=== PATIENT | female | born 1945 | race Two or more races ===

== ENCOUNTER → 2017-12-19 10:16 | Outpatient (CLI) | payer MEDICARE ==
[2017-12-19 11:00] LABS: BASOPHILS 0.4 % (0-2); EOSINOPHILS 2.2 % (0-7); HEMATOCRIT 40.9 % (36.0-48.0); HEMOGLOBIN 13.2 g/dL (12-16); IMMATURE GRANULOCYTES 0.2 % (0-5); LYMPHOCYTES 34.1 % (15-50); MCH 30.5 pg (26.0-34.0); MCHC 32.3 g/dL (31.0-37.0); MCV 94.5 fL (80.0-100.0); MEAN PLATELET VOLUME 10.9 fL (7.4-10.4); MONOCYTES 7.2 % (2-11); NEUTROPHILS 55.9 % (40-80); PLATELET COUNT 172 10x3/uL (130-400); RBC 4.33 10x6/uL (4.00-5.40); RDW 13.2 % (11.5-14.5); WBC 4.6 10x3/uL (4.8-10.8)
[2017-12-19 11:39] LABS: ALBUMIN 3.8 g/dL (3.4-5.0); ALKALINE PHOSPHATASE 79 U/L (46-116); ALT (SGPT) 37 U/L (10-68); CALC OSMOLALITY 281 mosm/kg (275-300); CALCIUM 9.6 mg/dL (8.5-10.1); CARBON DIOXIDE 26.6 mmol/L (21.0-32.0); CHLORIDE - SERUM 105 mmol/L (98-107); CHOL - HDL RATIO 3.8 ratio (2.3-4.1); CHOLESTEROL, TOTAL 208 mg/dL (0-200); CREATININE - SERUM 0.7 mg/dL (0.6-1.3); GLUCOSE 93 mg/dL (74-106); HDL CHOLESTEROL 55 mg/dL (32-96); LDL CHOLESTEROL 116 mg/dL (0-100); LDL-HDL RATIO 2.1 ratio (1.5-3.5); POTASSIUM - SERUM 4.5 mmol/L (3.5-5.1); PROTEIN - SERUM 8.2 g/dL (6.4-8.2); SODIUM 142 mmol/L (136-145); TRIGLYCERIDE 189 mg/dL (30-200); UREA NITROGEN 10 mg/dL (7-18); eGFR NON AFRICAN AMERICAN 87 mL/min (90-120)
== END | disposition home or self-care (01) ==
LOC: D.LAB 10:16
PROVIDERS: Family Medicine
DX: I10 Essential (primary) hypertension (principal); Z00.00 Encounter for general adult medical examination without abnormal findings; E78.5 Hyperlipidemia, unspecified; Z85.038 Personal history of other malignant neoplasm of large intestine; E55.9 Vitamin D deficiency, unspecified

== ENCOUNTER → 2017-12-27 09:28 | Outpatient (CLI) | payer MEDICARE ==
[2017-12-27 10:29] LABS: T4 THYROXIN - FREE 0.98 ng/dL (0.76-1.46); THYROID STIMULATING HORMONE 4.58 uIU/mL (0.36-3.74)
== END | disposition home or self-care (01) ==
LOC: D.LAB 12-23 08:15
PROVIDERS: Family Medicine
DX: E03.9 Hypothyroidism, unspecified (principal)

== ENCOUNTER → 2018-04-21 10:58 | Outpatient (CLI) | payer MEDICARE ==
[2018-04-21 11:37] LABS: APPEARANCE CLEAR (CLEAR); BILIRUBIN NEGATIVE (NEGATIVE); COLOR MINT GREEN (YELLOW); GLUCOSE NEGATIVE (NEGATIVE); KETONE NEGATIVE (NEGATIVE); NITRITE NEGATIVE (NEGATIVE); PROTEIN NEGATIVE (NEGATIVE); UROBILINOGEN NORMAL (NORMAL)
[2018-04-21 11:47] LABS: T4 THYROXIN - FREE 0.83 ng/dL (0.76-1.46); THYROID STIMULATING HORMONE 4.58 uIU/mL (0.36-3.74)
== END | disposition home or self-care (01) ==
LOC: D.LAB 10:58
PROVIDERS: Family Medicine
DX: R30.0 Dysuria (principal); E03.9 Hypothyroidism, unspecified; R10.9 Unspecified abdominal pain

== ENCOUNTER → 2018-06-28 08:45 | Outpatient (CLI) | payer MEDICARE ==
--- NOTE | ~2018-06-28 | ST ---
PATIENT:DENZEL AZAR MEDICAL RECORD: [id number] SEX: F LOCATION:[facility] ORDER #: ADMISSION DATE: 06/28/18 AGE OF PATIENT: 73 REFERRING PHYSICIAN: INTERPRETING PHYSICIAN: JAE DORAN MD DATE OF SERVICE: 06/28/2018 PROCEDURE: Nuclear Stress Test INDICATION: Chest pain of unknown etiology, hypertension, hyperlipidemia. She was exercised on standard Carlos protocol terminated at 5 minutes due to achievement of maximum target heart rate response with 33.0 mCi of sestamibi injected at peak stress, 11 mCi were used previously for rest images. FINDINGS: Gated SPECT reveals preserved ejection fraction at 75% with good wall motioning and thickening and brightening throughout all segments. SPECT imaging Cardiolite was used as myocardial fusion agent. There is reversibility inferiorly and apically. This includes the basal, mid apical inferior segments as well as the apex itself. The degree of reversibility is moderate. The amount of myocardium involved is moderate. OVERALL IMPRESSION: 1. This is a normal nuclear stress test, reversibility inferiorly and apically. 2. Gated SPECT reveals preserved ejection fraction greater than 70% in this patient with ongoing symptomatology, the current scan does suggest the presence of hemodynamically significant coronary artery disease. We would proceed with coronary angiography as followup study. TRANSINT:[id number] Voice Confirmation ID: [id number] DOCUMENT ID: [id number] JAE DORAN MD at 1856 CC: [id number] DICTATION DATE: 06/29/18 1300 ADVERTISING SPECIALIST: 06/29/18 2348 DEP CLI 06/28/18 [place] [address]
[~2018-06-28 08:45] MED LIST: LOPRESSOR25 MG PO; PRINZIDE 20/12.1 TA1 PO; ZOCOR20 MG PO
[2018-07-12 09:29] VITALS: BMI 26.5
== END | disposition home or self-care (01) ==
LOC: D.HCCARDIO 08:45
DX: I20.9 Angina pectoris, unspecified (principal)

== ENCOUNTER → 2018-07-12 08:59 | Outpatient (CLI) | payer MEDICARE ==
[~2018-07-12] VITALS: Ht 167.6 cm; Wt 74.5 kg
--- NOTE | ~2018-07-12 | OP ---
PATIENT NAME: DENZEL AZAR MEDICAL RECORD: [id number] :41 LOCATION:[facility] ADMISSION DATE: SURGEON: JAE DORAN MD DATE OF OPERATION: 07/12/2018 PROCEDURES: 1. Left heart catheterization. 2. Selective coronary angiography. 3. Left ventriculogram. INDICATION: Chest pain compatible with angina. PROCEDURE IN DETAIL: After informed consent was obtained and after a detailed explanation of risks, benefits as well as alternative therapies, the patient elected to proceed with angiogram and heart catheterization. The right radial area was prepped and draped in normal sterile fashion. Right radial artery was cannulated via modified Seldinger technique with placement of 6-Hebrew sheath. All catheters exchanged through this sheath. FINDINGS: Left ventriculogram was performed in standard 30-degree DE LOS SANTOS view, reveals good cardiac wall motion throughout all segments. Overall ejection fraction estimated 60%. SELECTIVE CORONARY ANGIOGRAPHY: Left main, left anterior descending, left circumflex, right coronary artery are all smooth-walled vessels with no angiographic evidence of coronary artery disease. OVERALL IMPRESSION: 1. No angiographic evidence of coronary artery disease. 2. Normal left heart pressures. 3. Normal left ventricular systolic function. Chest pain is noncardiac in etiology. No further cardiac workup needs to be ascertained. TRANSINT:[id number] Voice Confirmation ID: [id number] DOCUMENT ID: [id number] JAE DORAN MD at 1718 CC: [id number] DICTATION DATE: 07/12/18 1100 LEARNING ADMINISTRATOR: 07/12/18 1221 DEP CLI 07/12/18 [id number] [place] [address]
--- NOTE | ~2018-07-12 | HEMODYNAMI ---
PATIENT:DENZEL AZRA MEDICAL RECORD: [id number] : 41 LOCATION:[facility] ADMISSION DATE: 07/12/18 Generatedon:07/12/201810:59 Patient name: DENZEL AZAR Patient #: [id number] SSN: : Date of study: 07/12/2018 Page: Of Hemodynamic Procedure Report Patient Data Patient Demographics Procedure consent was obtained First Name: DENZEL Gender: Female Last Name: DOE : 1945 Patient #: [id number] Age: 73 year(s) Race: Other Additional ID: [id number] Contact details [address]: [address] [place] [address] [place] State: [place] City: [place] Zip code: [address] Past Medical History Allergies: No known allergies Admission Admission Data Admission Date: 07/12/2018 Admission Time: 8:59 Procedure Procedure Types Cath Procedure Diagnostic Procedure LHC LHC w/Coronaries Procedure Description Procedure Date Procedure Date: 07/12/2018 Procedure Start Time: 10:51 Procedure End Time: 10:58 Procedure Staff Name Function Leonidas Jefferson MD Performing Physician Manjula Rainey RT Monitor Lindsey Carr RN Nurse Andre Jones RT Scrub Jose Otero RN Building Certifier Procedure Data Cath Procedure Fluoroscopy Diagnostic fluoroscopy Total fluoroscopy Time: 1.2 time: 1.2 min min Diagnostic fluoroscopy Total fluoroscopy dose: 121 dose: 121 mGy mGy Contrast Material Contrast Material Type Amount (ml) Isovue 300 49 Entry Location Entry Primary Successful Side Size Upsize Upsize Entry Closure Saleh ccessful Closure Location (Fr) 1 (Fr) 2 (Fr) Remarks Device Remarks Radial Right 6 Fr Mechanical artery Short Compression Estimated blood loss: 5 ml Diagnostic catheters Device Type Used For End Catheter Placement DIAGNOSTIC [place] 110cm 5 LV Angiography Fr catheter ([id number]) DIAGNOSTIC [place] 110cm 5 Left Coronary Fr catheter ([id number]) Angiography DIAGNOSTIC [place] 110cm 5 Right Coronary Fr catheter (557672) Angiography Procedure Complications No complications Procedure Medications Medication Administration Route Dosage Oxygen etCO2 Nasal cannula 2 l/min Lidocaine 2% added to field 20 Heparin Flush Bag added to field 2 bags (1000units/500ml NS) 0.9% NaCl I.V. 100 ml/hr Radial Cocktail added to field 1 syringe (Verapomil 2mg/Nitro 400mcg/Heparin 1500units) Versed I.V. 2 mg Fentanyl I.V. 100 mcg Versed I.V. 1 mg Fentanyl I.V. 50 mcg Hemodynamics Rest Heart Rate: 93 (bpm) Snapshots Pre Cath Intra NCS Post Cath Vital Signs Time Heart Resp SPO2 etCO2 NIBP (mmHg) Rhythm Pain Sedation Rate (ipm) (%) (mmHg) Status Level (bpm) 10:14:42 73 16 98 0 141/82(120) NSR 0 (11) 10(A) , No pain 10:19:06 63 12 98 35.9 146/73(89) NSR 0 (11) 10(A) , No pain 10:23:24 61 17 96 36 128/70(97) NSR 0 (11) 10(A) , No pain 10:27:42 61 15 99 24 127/69(106) NSR 0 (11) 10(A) , No pain 10:31:59 59 15 100 26.9 128/68(93) NSR 0 (11) 10(A) , No pain 10:36:17 57 14 98 29.9 127/59(110) NSR 0 (11) 10(A) , No pain 10:40:33 66 16 95 30 118/68(100) NSR 0 (11) 10(A) , No pain 10:44:43 60 13 96 35.9 116/68(97) NSR 0 (11) 10(A) , No pain 10:49:03 65 14 94 14.9 173/69(89) NSR 0 (11) 9(A) , No pain 10:53:25 82 16 98 32.9 85/58(68) NSR 0 (11) 9(A) , No pain 10:58:22 70 14 97 28.4 115/62(95) NSR 0 (11) 10(A) , No pain Medications Time Medication Route Dose Verified Delivered Reason Notes Effectiveness by by 10:13:08 Oxygen etCO2 2 l/min Leonidas Portillo used for Nasal Tauth MD Carr coke wheeler cannula 10:13:15 Lidocaine 2% added 20ml Leonidas Lauren for local to vial Ronny Jefferson MD anesthetic field 10:13:22 Heparin Flush added 2 bags Leonidas Lauren used for Bag to Ronny Jefferson MD procedure (1000units/500ml field NS) 10:13:31 0.9% NaCl I.V. 100 Leonidas Portillo Per ml/hr Ronny Carr RN physician 10:40:33 Radial Cocktail added 1 Leonidas Lauren for (Verapomil to syringe Ronny Jefferson MD vasodilation 2mg/Nitro field 400mcg/Heparin 1500units) 10:46:24 Versed I.V. 2 mg Leonidas Portillo for sedation Ronny Carr RN 10:46:30 Fentanyl I.V. 100 mcg Leonidas Portillo for sedation Ronny Carr RN 10:54:17 Versed I.V. 1 mg Leonidas Portillo for sedation Ronny Carr RN 10:54:21 Fentanyl I.V. 50 mcg Leonidas Portillo for sedation Ronny Carr RN Procedure Log Time Note 9:50:46 Manjula Counts RT(R) sent for patient. Start room use. 9:55:27 Time tracking: Regular hours (M-F 7:00 - 5:00) 9:55:30 Plan of Care:Hemodynamics will remain stable., Cardiac rhythm will remain stable., Comfort level will be maintained., Respiratory function will remain adequate., Patient/ family verbilizes understanding of procedure., Procedure tolerated without complication., Recovers from procedure without complications.. 10:07:39 Patient received from Pre/Post Procedure Room to CCL 3 Alert and oriented. Tansferred to table in Supine position. 10:07:57 Warm blankets applied, and suzie hugger turned on for patient comfort. 10:08:07 Correct patient and procedure confirmed by team. 10:08:13 Signed procedure consent form obtained from patient. 10:08:17 ECG and BP/O2 sat monitors applied to patient. 10:13:08 Oxygen 2 l/min etCO2 Nasal cannula was administered by Lindsey Carr RN; used for procedure; 10:13:15 Lidocaine 2% 20ml vial added to field was administered by Leonidas Jefferson MD; for local anesthetic; 10:13:22 Heparin Flush Bag (1000units/500ml NS) 2 bags added to field was administered by Leonidas Jefferson MD; used for procedure; 10:13:31 0.9% NaCl 100 ml/hr I.V. was administered by Lindsey Carr RN; Per physician; 10:13:34 Vital chart was started 10:18:00 Baseline sample Acquired. 10:18:05 Rhythm: sinus rhythm 10:18:21 H&P Date Dictated: 06/12/2018 Within 30 days and on chart., H&P Addendum completed by physician on day of procedure. (MUST COMPLETE FOR ALL OUTPATIENTS). 10:18:22 Pre-procedure instructions explained to patient. 10:18:22 Pre-op teaching completed and patient verbalized understanding. 10:18:24 Family in patients room. 10:18:27 Patient NPO since Midnight. 10:18:32 Patient allergic to No known allergies 10:18:34 Is the patient allergic to Iodine/contrast media? No. 10:18:35 Is patient on blood thinner?No 10:18:37 Patient diabetic? No. 10:18:40 Previous problem with sedation/anesthesia? No ? 10:18:40 Snore? Yes 10:18:41 Sleep apnea? No 10:18:42 Deviated septum? No 10:18:43 Opens mouth fully? Yes 10:18:44 Sticks out tongue? Yes 10:18:46 Airway obstruction? No ? 10:18:47 Dentures? No ? 10:18:50 Pre procedure: right dorsailis pedis pulse 2+ Normal; easily identifiable; not easily obliterated 10:18:52 Modified Karsten's test Ulnar < 7 seconds 10:18:53 Patient pain scale 0/10 ?. 10:19:00 IV patent on arrival in left forearm with 0.9% NaCl at O. 10:19:02 Lab results completed and on chart. 10:19:06 Right Radial & Right Groin area was prepped with chlora-prep and draped in sterile fashion 10:19:07 Alarms reviewed by R. N. 10:19:07 Sharps counted by scrub and verified by R.N. 10:19:11 Use device set Radial Dx or PCI 10:19:12 ACIST Syringe (61115) opened to sterile field. 10:19:13 Medline Cath Pack ([id number]) opened to sterile field. 10:19:13 Bag Decanter (2001S) opened to sterile field. 10:19:14 DIAGNOSTIC WIRE .035 260cm J wire (766754) opened to sterile field. 10:19:14 ACIST Hand Control (60834) opened to sterile field. 10:19:15 ACIST Manifold (96045) opened to sterile field. 10:19:15 Tegaderm 4 x 4 (1626W) opened to sterile field. 10:19:19 SHEATH 6FR Slender (36-1060) opened to sterile field. 10:30:37 Zero performed for pressure channel P1 10:40:33 Radial Cocktail (Verapomil 2mg/Nitro 400mcg/Heparin 1500units) 1 syringe added to field was administered by Leonidas Jefferson MD; for vasodilation; 10:45:21 Final Timeout: patient, procedure, and site verified with staff and physician. All members of the team are in agreement. 10:45:24 Right Radial & Right Groin site verified by team. 10:45:27 Physical assessment completed. ASA score P 2 - A patient with mild systemic disease as per Leonidas Jefferson MD. 10:45:31 Sedation plan: IV Moderate Sedation Medication:Versed, Fentanyl 10:46:24 Versed 2 mg I.V. was administered by Lindsey Carr RN; for sedation; 10:46:30 Fentanyl 100 mcg I.V. was administered by Lindsey Carr RN; for sedation; 10:51:06 Procedure started. 10:51:06 Full Disclosure recording started 10:51:11 Local anesthetic to right radial artery with Lidocaine 2% by Leonidas Jefferson MD.INITIAL ACCESS ONLY 10:51:31 A 6 Fr Short sheath was inserted into the Right Radial artery 10:52:08 The patient's family notified of status per Jose Otero RN. 10:52:32 A DIAGNOSTIC [place] 110cm 5 Fr catheter (646645) was advanced over the wire and used for LV Angiography. 10:53:09 LV gram done using DE [place] SANTOS 10:53:16 Injector settings: Ml/sec: 5, Volume: 15, 10:53:22 EF : 60 % 10:53:47 A DIAGNOSTIC [place] 110cm 5 Fr catheter (582173) was advanced over the wire and used for Left Coronary Angiography. 10:54:17 Versed 1 mg I.V. was administered by Lindsey Carr RN; for sedation; 10:54:21 Fentanyl 50 mcg I.V. was administered by Lindsey Carr RN; for sedation; 10:54:53 A DIAGNOSTIC [place] 110cm 5 Fr catheter (108049) was advanced over the wire and used for Right Coronary Angiography. 10:54:56 Catheter removed. 10:55:00 TR BAND Standard (CHO51NLK) opened to sterile field. 10:55:16 Sheath removed intact; hemostasis achieved with Mechanical Compression to the Right Radial artery. 10:55:18 Procedure ended.(Physican Out) 10:55:38 Fluoroscopy time 01.20 minutes. 10:55:42 Fluoroscopy dose: 121 mGy 10:55:42 Flurop Dose total: 121 10:55:45 Contrast amount:Isovue 300 49ml. 10:55:46 Sharps counted by scrub and verified by R.N. 10:55:49 TR band inflated with 12cc of air. 10:55:50 Insertion/operative site no bleeding no hematoma. 10:55:54 Post right radial artery:stable, clean and dry 10:55:55 Post Procedure Pulses reassessed and unchanged 10:55:58 Post-procedure physical assessment completed. ASA score P 2 - A patient with mild systemic disease as per Leonidas Jefferson MD. 10:56:00 Post procedure rhythm: unchanged. 10:56:02 Estimated blood loss: 5 ml 10:56:04 Post procedure instruction explained to patient.Patient verbalizes understanding. 10:56:04 Patient needs reinforcement of post procedure teaching. 10:56:11 Procedure Complication : No complications 10:56:13 See physician's report for complete and final results. 10:56:24 Procedure and supply charges have been captured, reviewed, submitted and are correct. 10:58:26 Vital chart was stopped 10:58:28 Report given to Pre/Post Procedure Room. 10:58:31 Patient transfered to Pre/Post Procedure Room with Stretcher. 10:58:41 Procedure ended. 10:58:41 Full Disclosure recording stopped 10:58:44 End room use (Document Last) Device Usage Item Name Manufacture Quantity Catalog Hospital Part Current Minimal Lot# / Number Charge Number Stock Stock Serial# Code [place] [address] 68254 555099 [id number] 467183 20 Syringe Medical (17728) Systems Inc Medline Medline 1 [id number] 793269 36759 327872 5 Cath Pack ([id number]) Bag Microtek 1 2001S 974786 05406 848373 5 Decanter Medical Inc. () DIAGNOSTIC St [place]avo 1 041689 622368 640461 400469 30 WIRE .035 260cm J wire (136333) ACIST Hand Acist 1 57254 746842 096763 404702 5 Control Medical (75966) Systems Inc ACIST Acist 1 79755 916707 173359 430553 5 Manifold Medical (10522) Systems Inc Tegaderm 4 3M 1 1626W 393793 035589 985260 5 x 4 (1626W) SHEATH 6FR Terumo 1 [id number] 094598 167082 595542 40 Slender (801060) DIAGNOSTIC Terumo 1 40-8696 915594 349887 158821 5 [place] 110cm 5 Fr catheter (789661) TR BAND Terumo 1 [id number] 606954 690014 115747 40 Standard ([id number]) Signature Audit [place] Stage Time Signature Unsigned Intra-Procedure 07/12/2018 Manjula 10:58:55 AM Counts RT(R) Signatures Monitor : Manjula Signature : Counts RT Date : Time : [address] [address]
[2018-07-12 09:29] VITALS: BP 147/54; Ht 167.6 cm; Wt 74.5 kg
[2018-07-12 09:44] LABS: BASOPHILS 0.4 % (0-2); EOSINOPHILS 2.3 % (0-7); HEMATOCRIT 38.5 % (36.0-48.0); HEMOGLOBIN 12.5 g/dL (12-16); IMMATURE GRANULOCYTES 0.2 % (0-5); LYMPHOCYTES 34.2 % (15-50); MCH 30.7 pg (26.0-34.0); MCHC 32.5 g/dL (31.0-37.0); MCV 94.6 fL (80.0-100.0); MEAN PLATELET VOLUME 10.5 fL (7.4-10.4); MONOCYTES 7.5 % (2-11); NEUTROPHILS 55.4 % (40-80); PLATELET COUNT 183 10x3/uL (130-400); RBC 4.07 10x6/uL (4.00-5.40); RDW 14.1 % (11.5-14.5); WBC 5.2 10x3/uL (4.8-10.8)
[2018-07-12 09:47] LABS: ANION GAP 10.6 mmol/L (8-16); CALCIUM 8.8 mg/dL (8.5-10.1); CARBON DIOXIDE 28.6 mmol/L (21.0-32.0); CREATININE - SERUM 0.8 mg/dL (0.6-1.3); POTASSIUM - SERUM 4.2 mmol/L (3.5-5.1)
== END | disposition home or self-care (01) ==
LOC: D.CATH 08:59
PROVIDERS: Internal Medicine Interventional Cardiology
DX: R07.89 Other chest pain (principal); Z01.812 Encounter for preprocedural laboratory examination

== ENCOUNTER → 2019-01-31 10:44 | Outpatient (CLI) | payer OTHER, MEDICAID ==
[2018-07-12 09:29] VITALS: BMI 26.5
[2019-01-31 11:20] LABS: BASOPHILS 0.2 % (0-2); EOSINOPHILS 1.4 % (0-7); HEMATOCRIT 38.8 % (36.0-48.0); HEMOGLOBIN 13.1 g/dL (12-16); IMMATURE GRANULOCYTES 0.2 % (0-5); LYMPHOCYTES 29.4 % (15-50); MCH 31.3 pg (26.0-34.0); MCHC 33.8 g/dL (31.0-37.0); MCV 92.6 fL (80.0-100.0); MEAN PLATELET VOLUME 10.5 fL (7.4-10.4); MONOCYTES 7.8 % (2-11); PLATELET COUNT 168 10x3/uL (130-400); RBC 4.19 10x6/uL (4.00-5.40); RDW 13.2 % (11.5-14.5); WBC 5.1 10x3/uL (4.8-10.8)
[2019-01-31 11:44] LABS: ANION GAP 10.8 mmol/L (8-16); BILIRUBIN - TOTAL 0.6 mg/dL (0.2-1.3); CALCIUM 9.7 mg/dL (8.5-10.1); CARBON DIOXIDE 31.4 mmol/L (21.0-32.0); CHOL - HDL RATIO 3.3 ratio (2.3-4.1); CREATININE - SERUM 0.8 mg/dL (0.6-1.3); LDL-HDL RATIO 1.9 ratio (1.5-3.5); POTASSIUM - SERUM 4.2 mmol/L (3.5-5.1); PROTEIN - SERUM 8.1 g/dL (6.4-8.2); THYROID STIMULATING HORMONE 3.8 uIU/mL (0.36-3.74)
== END | disposition home or self-care (01) ==
LOC: D.LAB 10:44
PROVIDERS: ATTEND Family Medicine
DX: I10 Essential (primary) hypertension (principal); E03.9 Hypothyroidism, unspecified; E78.5 Hyperlipidemia, unspecified; Z00.00 Encounter for general adult medical examination without abnormal findings

== ENCOUNTER → 2019-08-29 09:55 | Outpatient (CLI) | payer OTHER, MEDICAID ==
[2018-07-12 09:29] VITALS: BMI 26.5
[2019-08-29 11:13] LABS: BASOPHILS 0.4 % (0-2); EOSINOPHILS 1.9 % (0-7); HEMATOCRIT 40.3 % (36.0-48.0); IMMATURE GRANULOCYTES 0.2 % (0-5); LYMPHOCYTES 32.6 % (15-50); MCH 30.1 pg (26.0-34.0); MCHC 32.3 g/dL (31.0-37.0); MCV 93.3 fL (80.0-100.0); MEAN PLATELET VOLUME 10.6 fL (7.4-10.4); MONOCYTES 8.1 % (2-11); NEUTROPHILS 56.8 % (40-80); RBC 4.32 10x6/uL (4.00-5.40); RDW 13.1 % (11.5-14.5); WBC 5.2 10x3/uL (4.8-10.8)
[2019-08-29 11:15] LABS: PLATELET COUNT 204 10x3/uL (130-400)
[2019-08-29 11:54] LABS: ALBUMIN 3.8 g/dL (3.4-5.0); ALKALINE PHOSPHATASE 59 U/L (46-116); ALT (SGPT) 37 U/L (10-68); BILIRUBIN - TOTAL 0.51 mg/dL (0.2-1.3); CALC OSMOLALITY 281 mosm/kg (275-300); CALCIUM 9.6 mg/dL (8.5-10.1); CARBON DIOXIDE 31.9 mmol/L (21.0-32.0); CHLORIDE - SERUM 104 mmol/L (98-107); CHOL - HDL RATIO 3.9 ratio (2.3-4.1); CHOLESTEROL, TOTAL 231 mg/dL (0-200); CKMB 1.5 U/L (0.0-3.6); CREATINE KINASE 112 UL (21-215); CREATININE - SERUM 0.7 mg/dL (0.6-1.3); GLUCOSE 94 mg/dL (74-106); HDL CHOLESTEROL 60 mg/dL (32-96); LDL CHOLESTEROL 149 mg/dL (0-100); LDL-HDL RATIO 2.5 ratio (1.5-3.5); POTASSIUM - SERUM 4.1 mmol/L (3.5-5.1); SODIUM 142 mmol/L (136-145); THYROID STIMULATING HORMONE 4.46 uIU/mL (0.36-3.74); TRIGLYCERIDE 113 mg/dL (30-200); UREA NITROGEN 11 mg/dL (7-18); eGFR NON AFRICAN AMERICAN 86 mL/min (90-120)
[2019-08-29 11:55] LABS: TROPONIN-I < 0.017 ng/mL (0.000-0.060)
== END | disposition home or self-care (01) ==
LOC: D.LAB 09:55
PROVIDERS: ATTEND Family Medicine
DX: I20.8 Other forms of angina pectoris (principal); E78.49 Other hyperlipidemia; Z00.00 Encounter for general adult medical examination without abnormal findings; E03.9 Hypothyroidism, unspecified; I10 Essential (primary) hypertension; R07.9 Chest pain, unspecified

== ENCOUNTER → 2020-11-25 10:59 | Outpatient (CLI) | payer MEDICARE ==
[2018-07-12 09:29] VITALS: BMI 26.5
== END | disposition home or self-care (01) ==
LOC: D.RAD 10:59
PROVIDERS: ATTEND Family Medicine
DX: M25.561 Pain in right knee (principal); M25.562 Pain in left knee